=== PATIENT | female | born 1980 | race Caucasian/White ===

== ENCOUNTER 2019-05-14 09:35 | Emergency (ER) | payer OTHER, SELFPAY ==
--- NOTE | ~2019-05-14 | XR_ITS ---
EXAMINATION: XR hand LT min 3V EXAM DATE: 05/14/2019 10:12 INDICATION: Collided with child. TECHNIQUE: Left hand frontal, lateral and oblique projections obtained and reviewed. Correlation is m em to left wrist exam same date. FINDINGS: Left metacarpal bones are unremarkable. There are no acute fractures or dislocations ident ified. There is no subcutaneous gas. The soft tissue is unremarkable. There are no radiopaque for eign bodies. IMPRESSION: 1. XR hand LT min 3V exam without acute osseous findings. Reviewed, dictated and finalized at location A. H WASHER
--- NOTE | ~2019-05-14 | XR_ITS ---
EXAMINATION: XR wrist LT min 3V DATE: 05/14/2019 10:12 INDICATION: Left wrist injury and pain. TECHNIQUE: 4 views of left wrist were obtained. COMPARISON: None. FINDINGS: Bone alignment is normal. No fracture. Joint spaces are normal. IMPRESSION: 1. Normal left wrist. Reviewed, dictated and finalized at location A. D RUNNER IMPRESSION: 1. Normal left wrist.
[2019-05-14 09:53] VITALS: BP 109/56; PULSE 77; RESP 16; TEMP 36.6; O2SAT 100
--- NOTE | 2019-05-14 10:20 | ED.UPPEXIN ---
HPI - Extremity Injury (Upper) General Chief Complaint: Extremity Injury, Upper Stated Complaint: hand pain Source: patient Mode of arrival: ambulatory Limitations: no limitations History of Present Illness HPI narrative: Patient is a 39-year-old female who presents complaining of left wrist pain. Patient reports injuring her wrist when colliding with child 3 days ago. Patient reports increased pain over the past 2 days. Patient tearful with range of motion. Patient denies taking [id number] medications since injury. MD complaint: injury to: left and wrist Other injuries: none Related Data Home Medications Medication Instructions Recorded Confirmed amlodipine 10 mg PO DAILY 05/14/19 05/14/19 glycopyrrolate 8 mg PO DAILY 05/14/19 05/14/19 lisinopril 10 mg PO DAILY 05/14/19 05/14/19 Allergies Allergy/AdvReac Type Severity Reaction Status Date / Time azithromycin Allergy Mild Hives Verified 05/14/19 09:59 Review of Systems Review of Systems: Narrative: CONSTITUTIONAL: Denies fever, chills, or sweats. EYES: Denies visual changes, redness, or discharge. ENT: Denies rhinorrhea, congestion, sore throat, or otalgia. CARDIOVASCULAR: Denies chest pain, palpitations, or edema. RESPIRATORY: Denies cough or dyspnea. GASTROINTESTINAL: Denies abdominal pain, nausea, vomiting, or diarrhea. GENITOURINARY: Denies dysuria or hematuria. SKIN: Denies rash or itching. MUSCULOSKELETAL: Denies back pain or myalgia. Reports left wrist tenderness NEUROLOGIC: Denies headache, numbness, dizziness, or weakness. PSYCHIATRIC: Denies anxiety or depression. [facility] Past Medical History Medical History (Updated 05/14/19 @ 10:44 by LUIS Oh) HTN (hypertension) Preeclampsia Surgical History Surgical History (Updated 05/14/19 @ 10:39 by LUIS Oh) H/O: X2 Social History Social History (Updated 05/14/19 @ 10:40 by LUIS Oh) Smoking status: Never smoker Alcohol intake: never Substance use: never Living arrangements: with family Gender identity (if verbalized by the patient): Female Exam Narrative: Exam Narrative: GENERAL: Well-appearing, well-nourished, and in no acute distress. HEAD: Normocephalic, atraumatic. EYES: EOMI. No redness or drainage. Conjunctiva are normal. ENT: Mucous membranes pink and moist. Nares clear. No rhinorrhea. TMs normal bilaterally. Throat normal. Uvula midline. CHEST: No respiratory distress. Clear to auscultation. HEART: Regular rate and rhythm. No murmur appreciated. Normal peripheral pulses. EXTREMITIES: Point tenderness and edema to left wrist. Distal sensation intact, good capillary refill. NEURO: No focal deficits. Alert and oriented x3. Gait steady. PSYCH: Normal affect. No signs of depression or anxiety. Course Vital Signs Vital signs: Vital Signs Temperature 36.6 C 05/14/19 09:53 Pulse Rate 77 05/14/19 09:53 Respiratory Rate 16 05/14/19 09:53 Blood Pressure 109/56 L 05/14/19 09:53 Pulse Oximetry 100 05/14/19 09:53 Temperature 36.6 C 05/14/19 09:53 Pulse Rate 77 05/14/19 09:53 Respiratory Rate 16 05/14/19 09:53 Blood Pressure 109/56 L 05/14/19 09:53 Pulse Oximetry 100 05/14/19 09:53 MDM - Extremity Injury (Upper) MDM Narrative Medical decision making narrative: X-ray of left wrist and hand are negative. Discussed with patient possible sprain or strain of left wrist. Discussed immobilization and NSAIDs. Patient aware and agrees with plan of care. Patient is stable for discharge home with outpatient follow-up as needed. Differential Diagnosis Differential diagnosis: Likely sprain and strain of wrist Imaging Data Radiologist's impression: ITS Impressions Wrist X-Ray 05/14/19 10:23 IMPRESSION: 1. Normal left wrist. Hand X-Ray 05/14/19 10:26 IMPRESSION: 1. XR hand LT min 3V exam without acute osseous findings. Critical Care Time Critical Care T
== END 2019-05-14 10:46 | disposition home or self-care (01) ==
PROVIDERS: Emergency Provider Nurse Practitioner
DX: S63.502A Unspecified sprain of left wrist, initial encounter (principal); S66.912A Strain of unspecified muscle, fascia and tendon at wrist and hand level, left hand, initial encounter; W51.XXXA Accidental striking against or bumped into by another person, initial encounter; I10 Essential (primary) hypertension
CPT/HCPCS: 73110; 73130; 99213; G0463